=== PATIENT | male | born 1950 | race Caucasian/White ===

== ENCOUNTER 2018-01-15 07:22 | Day surgery (SDC) | payer OTHER ==
[2018-01-15] MEDS ORDERED: NS 1,000 ML IV ONE (07:26)
[2018-01-15] MEDS ORDERED: ASPIRIN EC 325 MG TAB PO ONE (07:26)
[2018-01-15] MEDS ORDERED: FAMOTIDINE 20 MG TAB PO ONE (07:26)
[2018-01-15] MEDS ORDERED: diphenhydrAMINE 25 MG CAP PO ONE (07:26)
[2018-01-15] MEDS ORDERED: DIAZEPAM 5 MG TAB PO ONE (07:26)
[2018-01-15] MEDS ORDERED: IOPAMIDOL (ISOVUE-370) 150 ML BTL IV ONE (07:33)
[2018-01-15] MEDS ORDERED: MIDAZOLAM 2 MG/2 ML VIAL ONE (07:33)
[2018-01-15] MEDS ORDERED: LIDOCAINE 1% 300 MG/30 ML SDV ONE (07:33)
[2018-01-15] MEDS ORDERED: fentaNYL 100 MCG/2 ML INJ ONE (07:33)
--- NOTE | 2018-01-15 07:36 | PDHPUP ---
History & Physical Update H&P update statement: This history and physical update is based on an assessment of the patient which was completed after admission or registration (within 24 hours), but prior to the surgery/procedure. H&P update: H&P reviewed & patient examined, no change in patient's condition since H&P completed
--- NOTE | 2018-01-15 07:36 | PDPROPOC ---
Sedation Plan of Care Sedation Plan of Care: mental status noted, patient educated of risks, benefits , alternatives, patient can tolerate sedation ASA Classification: ASA 2 Planned drugs: fentanyl, midazolam Mallampati Score: Class 2 Mallampati Reference Image: Patient passed 3-3-2 rule?: Yes
[2018-01-15 07:49] LABS: PLATELET COUNT 203 10^3/uL (150-400)
[2018-01-15 07:59] LABS: INR 1.05 (0.83-1.16); PROTIME(PATIENT) 13.9 SEC (12.0-15.0)
[2018-01-15] MEDS ORDERED: ONDANSETRON 4 MG/2 ML VIAL IVP PRN (08:33)
[2018-01-15] MEDS ORDERED: OXYCODONE/APAP 5/325 TAB PO PRN (08:33)
[2018-01-15] MEDS ORDERED: HYDROCODONE/APAP 5/325 TAB PO PRN (08:33)
[2018-01-15] MEDS ORDERED: ATROPINE SULFATE 1 MG/10 ML SYR IVP PRN (08:33)
[2018-01-15] MEDS ORDERED: NITROGLYCERIN 0.4 MG BTL SL PRN (08:33)
--- NOTE | 2018-01-15 09:21 | CPIP ---
DATE OF PROCEDURE: 01/15/2018 INDICATION FOR PROCEDURE: Critical bioprosthetic aortic stenosis. PROCEDURES: 1. Nonselective left groin sheathogram. A 7-Bolivian sheath left common femoral vein. 2. Right heart catheterization with [place]-Charles catheter. 3. Bilateral coronary angiography. 4. Abdominal aortogram. HISTORY: Briefly, this is a 67-year-old male with history of known bioprosthetic aortic valve, sever e stenosis. Patient has been having worsening function of the valve over the last 6 months, which estrada s been followed closely by Dr. Manav Sepulveda. Patient had consented for right and left heart brennen terization in anticipation for eventual vrijp-lm-vtrej TAVR. DESCRIPTION OF PROCEDURE: Informed consent. Patient brought to [facility], where the left groin was preppe d and draped in sterile fashion. Utilizing lidocaine, a short 6-Bolivian sheath left femoral artery ve rified angiographically. A 7-Bolivian sheath in left common femoral vein. Portland-Charles catheter was then advanced. Wedge pressure was mean of 17, A-wave 20, V-wave 20, PA pressure systolic 40, diastolic 2 6, mean of 36. RV pressure systolic 45, diastolic 8, end of 12. RA pressure mean of 11, A-wave of 1 2, V-wave 13. Cardiac output was measured to be 5.8 by Mora with a cardiac index of 2.7. AO sat 97% . PA sat 79%. Portland-Charles catheter was then removed. JL4 catheter was advanced to the left coronary artery. Images of left coronary artery revealed normal long left main. Left circumflex artery gave off a marginal 1 proximally. There was a much larger marginal 2 artery and then what appeared to be all of which were healthy and free of disease. The LAD was a long vessel which wrapped ar ound the apex. The LAD had mild plaque disease, but no critical stenosis. There was a moderate-size d diagonal artery coming off the midportion which was healthy and free of disease. After the images were obtained, the JR4 catheter was removed. A JR4 catheter was advanced to the right coronary arter y. Images of the right coronary artery revealed normal ostial RCA, normal mid RCA. Distal RPDA appe ared to be aneurysmal, but appeared to be healthy and free of disease. After the images were obtaine d, the JR4 catheter was removed. A pigtail catheter advanced to the ascending aorta. Abdominal aort ogram was obtained which showed widely patent common, external, internal iliac arteries with widely p atent CFAs bilaterally. The pigtail catheter was then removed over the 0.035 wire. Right groin was closed with manual pressure. Patient tolerated the procedure well with no complications. IMPRESSION: 1. Essentially normal coronary arteries bilaterally. 2. Mild pulmonary hypertension. 3. Normal cardiac output. 4. Widely patent aortoiliac femoral access. PLAN: The patient will have CTs the chest, abdomen and pelvis today. We will also have carotid ultr asound. Plan for jhali-mx-wgfno TAVR within the week. /[id number]/MODL
[2018-01-15] MEDS ORDERED: IOPAMIDOL (ISOVUE 370) 100 ML BTL IV ONE (10:32)
--- NOTE | 2018-01-15 22:28 | CPEKG ---
Test Reason : OPEN Blood Pressure : / mmHG Vent. Rate : 084 BPM Atrial Rate : 000 BPM P-R Int : 164 ms QRS Dur : 103 ms QT Int : 401 ms P-R-T Axes : 000 019 054 degrees QTc Int : 475 ms Atrial fibrillation Left ventricular hypertrophy Nonspecific ST and T wave abnormality Confirmed by Garry Trent ([id number]) on 01/15/2018 10:28:02 PM Referred By: Confirmed By:Garry Trent
== END 2018-01-15 13:06 | disposition home or self-care (01) ==
LOC: FCATH 07:22
PROVIDERS: ATTEND Internal Medicine Cardiovascular Disease
DX: T82.857A Stenosis of other cardiac prosthetic devices, implants and grafts, initial encounter (principal)
CPT/HCPCS: J1200; J1644; J2250; J3010; Q9967

== ENCOUNTER 2018-01-20 05:41 | Inpatient (IN) | payer OTHER ==
[2018-01-20] MEDS ORDERED: NS 1,000 ML IV ONE (06:11)
--- NOTE | 2018-01-20 06:45 | PDPROPOC ---
Sedation Plan of Care Sedation Plan of Care: mental status noted, patient educated of risks, benefits , alternatives, patient can tolerate sedation ASA Classification: ASA 2 Planned drugs: other Mallampati Score: Class 2 Mallampati Reference Image: Patient passed 3-3-2 rule?: Yes
[2018-01-20] MEDS ORDERED: LIDOCAINE 1% 300 MG/30 ML SDV ONE ×2 (06:59→07:57)
[2018-01-20] MEDS ORDERED: ceFAZolin 2 GM/DEXTROSE 100 ML IV ONE (07:00)
[2018-01-20] MEDS ORDERED: IOPAMIDOL (ISOVUE-370) 150 ML BTL IV ONE (07:00)
--- NOTE | 2018-01-20 07:01 | PDANEPAE ---
ANE History of Present Illness tavr ANE Past Medical History - Cardiovascular History Hx Hypertension: Yes Hx Arrhythmias: No Hx Chest Pain: No Hx Coronary Artery / Peripheral Vascular Disease: No Hx CHF / Valvular Disease: Yes Hx Palpitations: No - Pulmonary History Hx COPD: No Hx Asthma/Reactive Airway Disease: No Hx Recent Upper Respiratory Infection: No Hx Oxygen in Use at Home: No Hx Sleep Apnea: No - Neurologic History Hx Cerebrovascular Accident: No Hx Seizures: No Hx Dementia: No - Endocrine History Hx Diabetes: No Hypothyroid: No Hyperthyroid: No Obesity: mild - Renal History Hx Renal Disorders: No - Liver History Hx Hepatic Disorders: No ANE Review of Systems Review of Systems: - Exercise capacity Exercise capacity: >=4 METS ANE Patient History - Allergies Allergies/Adverse Reactions: No Known Allergies Allergy (Verified 01/08/18 09:48) - Home Medications Home medications: home medication list seen and reviewed Home Medications: Acetaminophen [Tylenol 325mg (*)] 325 mg PO DAILY 01/08/18 [Last Taken Unknown] Aspirin [Aspirin 81mg (*)] 81 mg PO HS 01/08/18 [Last Taken 01/15/18 06:00] Cephalexin [Keflex (*)] 500 mg PO DAILY 01/08/18 [Last Taken 01/15/18 06:00] Lisinopril [Zestril 40 mg (*)] 40 mg PO DAILY 01/08/18 [Last Taken 01/15/18 06: 00] amLODIPine BESYLATE [Norvasc 5 mg (*)] 5 mg PO BID 01/08/18 [Last Taken 06:00] - Anes Hx Anes Hx: no prior problems - Smoking Hx Smoking Status: Never smoked ANE Labs/Vital Signs - Vital Signs Height: 185.4 cm Weight: 90.2 kg ANE Physical Exam - Airway Mallampati Score: Class 2 Mouth exam: normal dental/mouth exam - Pulmonary Pulmonary: no respiratory distress - Cardiovascular Cardiovascular: regular rate and rhythym - ASA Status ASA Status: III ANE Anesthesia Plan Anesthesia Plan: MAC Lines/Monitors: central line
[2018-01-20] MEDS ORDERED: MIDAZOLAM 2 MG/2 ML VIAL ONE (07:26)
[2018-01-20] MEDS ORDERED: PROPOFOL/EMULSION 500 MG/50 ML BOTTLE IV ONE (07:26)
[2018-01-20] MEDS ORDERED: fentaNYL 100 MCG/2 ML INJ ONE (07:26)
[2018-01-20] MEDS ORDERED: DEXMEDETOMIDINE HCL 400 MCG in NS 100 ML IV SCH (07:30)
[2018-01-20] MEDS ORDERED: HEPARIN 10,000 UNIT/10 ML MDV (1,000 UNIT/ML) ONE ×2 (08:25)
[2018-01-20] MEDS ORDERED: PROTAMINE SULFATE 50 MG/5 ML VIAL IVP ONE (08:38)
[2018-01-20] MEDS ORDERED: ATROPINE SULFATE 1 MG/10 ML SYR IVP PRN (08:48)
[2018-01-20] MEDS ORDERED: ONDANSETRON 4 MG/2 ML VIAL IVP PRN ×2 (08:48→09:01)
[2018-01-20] MEDS ORDERED: HYDROmorphONE/DILAUDID 1 MG/ML INJ IVP PRN (08:48)
[2018-01-20] MEDS ORDERED: hydrALAZINE 20 MG/ML VIAL IVP PRN (08:48)
[2018-01-20] MEDS ORDERED: IBUPROFEN 800 MG TAB PO PRN (08:48)
[2018-01-20] MEDS ORDERED: ONDANSETRON DISINTEGRATING 4 MG TAB PO PRN (08:48)
[2018-01-20] MEDS ORDERED: CEPHALEXIN 500 MG CAP PO SCH (09:00)
[2018-01-20] MEDS ORDERED: NALOXONE HCL 0.4 MG/ML INJ IVP PRN (09:01)
[2018-01-20] MEDS ORDERED: fentaNYL 100 MCG/2 ML INJ IVP PRN (09:01)
[2018-01-20] MEDS ORDERED: ALBUTEROL 3 ML DEYVIAL IH PRN (09:01)
--- NOTE | 2018-01-20 09:01 | POSTANESTH ---
Post Anesthetic Evaluation Cardiovascular Status: Normal, Stable Respiratory Status: Normal, Stable Level of Consciousness/Mental Status: Can Participate in Eval Pain Control: Adequate, Prn Tx Ordered Nausea/Vomiting Control: Adequate, Prn Tx Ordered Complications Possibly Related to Anesthesia: None Noted
--- NOTE | 2018-01-20 09:17 | GOP ---
DATE OF OPERATION: 01/20/2018 SURGEON: Joao Toscano MD PREOPERATIVE DIAGNOSIS: Aortic prosthetic valve stenosis. POSTOPERATIVE DIAGNOSIS: Aortic prosthetic valve stenosis. PROCEDURE PERFORMED: Transcatheter aortic valve replacement using a 26 mm Evolut R device. FINDINGS: INDICATIONS: The patient is a 67-year-old gentleman who had previous placement of a bioprosthetic ao rtic valve. He has now developed prosthetic stenosis. He is highly symptomatic, and was recommended to undergo transcatheter valve replacement for his failed prosthetic valve. 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 After the administration of IV antibiotics and monitor anesthesia and sterile prep and drap e both groins were accessed with the needle. On the right, an 8-Ethiopian sheath was placed, and this w as then upsized to the 14-Ethiopian Cook sheath. On the left side, an 8-Ethiopian sheath was placed and a pigtail catheter was passed through this. With the patient now fully heparinized we crossed the valv e and placed a double-curved Lunderquist into the left ventricle. The sheath was removed, and the 26 mm Evolut R device was then brought up into the field, and with Dr. Gonzales in position 1 and myself in position 2 the device was placed across the prosthetic valve, positioned, the patient ws paced, a nd the valve was deployed. Post deployment echocardiography revealed no perivalvular leak. We were pleased with this results, and therefore, the device was then removed. The right side was closed wit h 2 Perclose devices, which had been placed previously. The left side was also closed with a Perclos e device. The patient tolerated the procedure well, was returned to the recovery area in stable cond ition. PRODUCER ASSISTANT: Jasbir Gonzales MD. /[id number]/MODL
--- NOTE | 2018-01-20 10:48 | CPIP ---
DATE OF PROCEDURE: 01/20/2018 INDICATION FOR PROCEDURE: Critical bioprosthetic aortic stenosis. CO-SURGEONS: Dr. Joao Toscano, Dr. Ferny Quijano, Dr. Jasbir Gonzales PROCEDURE: 1. Nonselective left groin sheathogram. 2. Nonselective right groin sheathogram. 3. Double Perclose placement of the right common femoral artery. 4. Left heart catheterization. 5. Placement of Medtronic CoreValve Evolute R 26 mm valve via the transfemoral route. HISTORY: Briefly, a 67-year-old male with history of critical bioprosthetic aortic stenosis. Patien t was deemed to be a suitable candidate for transfemoral TAVR. DESCRIPTION OF PROCEDURE: After informed consent, the patient was brought to [facility], where the bilatera l groins were prepped in sterile fashion. Patient underwent MAC anesthesia. Temporary pacemaker vicente cement via the right IJ verified fluoroscopically, as well as electrically. 2 g Ancef administered p rior to the case. 6-Lithuanian sheath placed in the left common artery verified angiographically, upsized to an 8=Lithuanian sh [facility]. 6-Lithuanian sheath placed in the right femoral artery, upsized to an 8-Lithuanian sheath after double Perclose placements. Patient was administered a total of 14,000 heparin IV. The valve was crossed. The AL1 catheter with a straight stiff Glidewire was switched out for a pigtail catheter, switched out for a Lunderquist wire. The patient then had successful placement of a Medtronic CoreValve Evolu te R 26 mm valve by the transfemoral route. This was deployed successfully. Post-deployment, there was on echocardiographic evidence, no evidence of perivalvular leak with excellent deployment and laya osition and expansion of the valve. At this time, after the valve was deployed, the sheath was then pulled back and the right groin was c losed with the double Perclose. The left groin was closed with 8-Lithuanian Angio-Seal. The patient lizzy erated the procedure well with no complications. IMPRESSION: Successful placement of Medtronic CoreValve Evolute R 26 mg valve by the transfemoral ro cachil dehe. PLAN: The patient will be admitted to PCU. Further orders following clinical course. /[id number]/MODL
--- NOTE | 2018-01-20 14:25 | PDMN ---
Medical Necessity Medical necessity: MCG: S1320 aortic valve replacement , transcatheter 3 days: MICHAEL INPT only OP: TAVR
[2018-01-20] MEDS: amLODIPine BESYLATE 5 MG TAB PO SCH ×2 (14:39→20:58)
[2018-01-20] MEDS: ACETAMINOPHEN 325 MG TAB PO SCH ×4 (14:39→21:55)
[2018-01-20] MEDS: LISINOPRIL 40 MG TAB PO SCH (14:39)
[2018-01-20] MEDS: CEPHALEXIN 500 MG CAP PO SCH (20:57)
[2018-01-20] MEDS: oxyCODONE IR 5 MG TAB PO PRN (23:37)
[2018-01-21 05:05] LABS: PLATELET COUNT 185 10^3/uL (150-400)
[2018-01-21 05:12] LABS: INR 1.12 (0.83-1.16); PROTIME(PATIENT) 14.6 SEC (12.0-15.0)
--- NOTE | 2018-01-21 06:53 | PDCARPN ---
Cardiology Progress Note Chief Complaint: STEINBERG Assessment/Plan: Assessment: STEINBERG s/p TAVR for Carey AF but REYNA ligated Plan: 01/21/18 06:51 doing well pt does not want AC tx willing to do full dose ASA OOB IS check echo Subjective: doing well Reviewed/Discussed With: multidisciplinary team Time Spent with Patient: greater than 25 minutes Time Spent with Patient: Greater than 25 minutes spent on this patients care, greater than 50% of time spent counseling, educating, and coordinating care regarding the above mentioned plan. Objective: Vital Signs (8 Hrs) Temp Pulse Resp BP Pulse Ox 01/21/18 05:08 37.2 C 90 16 134/96 H 94 01/20/18 23:38 37.3 C 74 16 133/86 H 93 Intake/Output (24 Hrs) 01/20/18 01/21/18 01/22/18 05:59 05:59 05:59 Intake Total 2300 Output Total 100 Balance 2200 Intake: Oral (ml) 1500 IV Intake (ml) 800 Output: Urine (ml) 100 Urinal 100 Other: Weight 90.2 kg Number of Voids Toilet 2 Result Diagrams: 01/21/18 04:20 01/21/18 04:20 - Physical Exam Constitutional: healthy appearing Eyes: PERRL Ears, Nose, Mouth, Throat: moist mucous membranes Cardiovascular: regular rate and rhythm, systolic murmur Peripheral Pulses: 1+: femoral (R), femoral (L) Respiratory: clear to auscultate bilat Gastrointestinal: normoactive bowel sounds Genitourinary: no suprapubic tenderness Skin: no rashes Musculoskeletal: no muscular tenderness Neurologic: AAOx3 Psychiatric: cooperative ICD10 Worksheet Patient Problems: Problems Problem Status Onset Aortic stenosis, severe Acute - ICD10 Problem Qualifiers (1) Aortic stenosis, severe
[2018-01-21] MEDS: LISINOPRIL 40 MG TAB PO SCH (07:01)
[2018-01-21] MEDS: ACETAMINOPHEN 325 MG TAB PO SCH ×4 (07:01→22:50)
[2018-01-21] MEDS: amLODIPine BESYLATE 5 MG TAB PO SCH ×2 (07:01→20:46)
[2018-01-21] MEDS: ASPIRIN 325 MG TAB PO SCH (08:58)
--- NOTE | 2018-01-21 10:51 | ECHO ---
[email or web address] [address] [address] Main: [phone] Fax: Transthoracic Echocardiogram Name: ROX CIFUENTES MR#: [id number] Study Date: 01/21/2018 Study Time: 07:49 AM Date of : 1950 Age: 67 year(s) Height: 182.9 cm (72 in.) Weight: 89.81 kg (198 lb.) BSA: 2.12 m2 Gender: Male Examination: Echo Indication: Post TAVR Image Quality: Adequate Contrast: Requested by: Jasbir Gonzales BP: 136 mmHg/90 mmHg Heart Rate: Rhythm: Indication: Post TAVR Procedure Staff Veterinary Medicine Teacher: Adri Taylor RDCS Reading Physician: Manav Sepulveda MD Requesting Provider: Conclusions: No pericardial effusion. Concentric left ventricular hypertrophy transcutaneous aortic valve replacement. No aortic regurgitation. Mild tricuspid regurgitation. Measurements: Chambers Valvular Assessment AV/MV Valvular Assessment TV/PV Normal Normal Normal Name Value Range Name Value Range Name Value Range Ao Yaquelin (2D): 3.5 cm (1.4 cm-2.6 AV Vmax: 2.50 m/s (1 m/s-1.7 TR Vmax: 2.71 mm/s ( - ) cm) m/s) TR PGmax: 29 mmHg ( - ) IVSd (2D): 1.5 cm (0.6 cm-1.1 AV maxP mmHg ( - ) syst. PAP: 34 mmHg ( - ) cm) AV meanP mmHg ( - ) PV Vmax: 1.03 m/s (0.6 m/s-0.9 LVDd (2D): 5.0 cm (4.2 cm-5.9 ELBERT (VTI): 1.3 cm ( - ) m/s) cm) MV E Vmax: 0.94 m/s ( - ) PV PGmax: 4 mmHg ( - ) LVDs (2D): 3.6 cm (2.1 cm-4 MV PHT: 0.077 s ( - ) cm) MVA (PHT): 2.9 s ( - ) LVPWd (2D): 1.5 cm (0.6 cm-1 cm) LVOTd 2.2 cm 2.2 cm mm LVEF (MOD4): 53 % (>=55 %) RVDd(2D): 3.4 cm (1.9 cm-3.8 cmmm) Continued Measurements: Chambers Valvular Assessment AV/MV Valvular Assessment TV/PV Name Value Name Value Name Value LADs: 4.5 cm MV DecTime: 246 m/s CVP (est.): 5 mmHg LADs Lon.0 cm MV E' Septal: 0.10 m/s LA Area: 34.2 cm2 MV E/E' Septal: 9.60 LA Volume: 129 ml MV E/E' Lateral: 7.20 Patient: ROX CIFUENTES Study Date: 01/21/2018 Page 1 of 2 07:49 AM LA Volume Index: 60.8 ml/m2 RA Area: 24.3 cm2 Additional Vessels Name Value Ao Ascendin.9 cm Inferior Vena Cava: 2.1 cm Findings: Left Ventricle: Normal size left ventricle. Moderate concentric LV hypertrophy. Normal global systolic LV function. EF is 53 %. No regional wall motion abnormality. Unable to assess diastolic dysfunction. Possible inferior hypokinesis/dyskinesis vs bundle branch. Right Ventricle: Normal size right ventricle. Normal RV function. Left Atrium: The left atrium is severely dilated. Right Atrium: The right atrium is normal in size. Mitral Valve: The mitral valve is normal in appearance and function. Mild mitral valve regurgitation is present. No mitral stenosis is present. Aortic Valve: The aortic valve is a bioprosthesis. Normal functioning aortic valve prosthesis. The prosthetic aortic valve is normal. The orifice motion of the prosthetic aortic valve is normal. No prosthesis regurgitation. TAVR. Tricuspid Valve: The tricuspid valve is normal in appearance and function. Mild tricuspid regurgitation is present. The pulmonary artery pressure is normal. Right ventricular systolic pressure measures 34mmHg. Pulmonic Valve: The pulmonic valve is normal in appearance and function. There is no pulmonic regurgitation seen. Aorta: The aorta is normal. Normal size aortic root measuring 3.5 cm. Normal size ascending aorta measuring 2.9 cm. IVC: The IVC is normal sized. Pericardium: No pericardial effusion. No pleural effusion. There appears to be an anechoic structure on the liver. (No Signature Object) Patient: ROX CIFUENTES Study Date: 01/21/2018 Page 2 of 2 07:49 AM D:_[id number]
--- NOTE | 2018-01-21 15:39 | ASMTCMCOM ---
CM Note CM Note Notes: Pt's chart reviewed for d/c planning. Pt treated for critical bioprosthetic aortic stenosis and transfemoral artery. Pt is and lives at home independently. 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 No CM needs ar anticipated at this time; CM will continue to follow. D/C Plan: Anticipate independent. Date Signed: 01/21/2018 03:39 PM Electronically Signed By:Leslie العراقي
[2018-01-21] MEDS ORDERED: POLYETHYLENE GLYCOL 3350 17 GM PKT PO PRN (19:14)
[2018-01-21] MEDS: CEPHALEXIN 500 MG CAP PO SCH (20:47)
[2018-01-21] MEDS: oxyCODONE IR 5 MG TAB PO PRN (22:50)
[2018-01-22 04:24] LABS: PLATELET COUNT 161 10^3/uL (150-400)
[2018-01-22 04:31] LABS: INR 1.17 (0.83-1.16); PROTIME(PATIENT) 15.1 SEC (12.0-15.0)
[2018-01-22] MEDS: ACETAMINOPHEN 325 MG TAB PO SCH (06:35)
--- NOTE | 2018-01-22 06:58 | PDCARPN ---
Cardiology Progress Note Chief Complaint: degenerated bAVR Assessment/Plan: Assessment: STEINBERG s/p TAVR for Carey AF but REYNA ligated Plan: 01/21/18 06:51 doing well pt does not want AC tx willing to do full dose ASA OOB IS check echo 01/22/18 06:57 doing well d/c home today pt does not want Ac tx--will keep on full dose ASA Subjective: doing well Reviewed/Discussed With: multidisciplinary team Time Spent with Patient: greater than 25 minutes Time Spent with Patient: Greater than 25 minutes spent on this patients care, greater than 50% of time spent counseling, educating, and coordinating care regarding the above mentioned plan. Objective: Vital Signs (8 Hrs) Temp Pulse Resp BP Pulse Ox 01/22/18 02:38 37.1 C 76 16 123/80 H 93 01/21/18 23:34 37.8 C 83 16 134/90 H 93 Intake/Output (24 Hrs) 01/21/18 01/22/18 01/23/18 05:59 05:59 05:59 Intake Total 2300 2160 Output Total 100 550 Balance 2200 1610 Intake: Oral (ml) 1500 2160 IV Intake (ml) 800 Output: Urine (ml) 100 550 Toilet 200 Urinal 100 350 Other: Weight 90.2 kg Number of Voids Toilet 2 2 Urinal 1 Number of Stools Toilet 1 Result Diagrams: 01/22/18 04:01 01/22/18 04:01 - Physical Exam Constitutional: healthy appearing Eyes: PERRL Ears, Nose, Mouth, Throat: moist mucous membranes Cardiovascular: irregularly irregular Peripheral Pulses: 1+: femoral (R), femoral (L) Respiratory: clear to auscultate bilat Gastrointestinal: normoactive bowel sounds Genitourinary: no suprapubic tenderness Skin: no rashes Musculoskeletal: no muscular tenderness Neurologic: AAOx3 Psychiatric: cooperative ICD10 Worksheet Patient Problems: Problems Problem Status Onset Aortic stenosis, severe Acute - ICD10 Problem Qualifiers (1) Aortic stenosis, severe
[2018-01-22] MEDS: LISINOPRIL 40 MG TAB PO SCH (07:29)
[2018-01-22] MEDS: amLODIPine BESYLATE 5 MG TAB PO SCH (07:29)
[2018-01-22] MEDS: ASPIRIN 325 MG TAB PO SCH (07:29)
--- NOTE | 2018-01-22 07:32 | GDS ---
DISCHARGE DIAGNOSIS: Critical stenosis of degenerated bioprosthetic aortic valve. HISTORY: Briefly, this is a 67-year-old male who has known history of bioprosthetic aortic valve rep lacement. The patient's valve has significantly degenerated over the last year, which has been close ly followed as an outpatient. The patient started having increasing palpitations and dyspnea, which were noted as an outpatient. Given these findings, patient consented for igsxq-ve-ywqpa TAVR. The p jovon underwent successful eonaj-ul-jdrch TAVR with a Medtronic CoreValve Evolut R. Post-procedure, patient has done very well. Post-procedure echocardiogram shows a normally functioning valve with no perivalvular leak. The patients's ejection fraction is normal. Laboratory values are within normal limits. He will be discharged home this morning with his home medications. I have spoken at length with the patient about going on anticoagulation therapy for 2 reasons. One, that he now has a valve- in-valve prosthesis as well as having a chronic history of atrial fibrillation. Of note, his left at rial appendage was ligated at the time of his first surgery. The patient is very hesitant to do anyt shayy but full-dose aspirin. Thus, we will start that today. We will discuss with the patient as an outpatient, potentially starting anticoagulation therapy based on the aforementioned reasons. Baron ruelas to follow up in the office in 1 week's time. /[id number]/MODL
[2018-01-22 07:43] VITALS: BP 118/88
--- NOTE | 2018-01-22 12:39 | ASDISCHSUM ---
Discharge Information Plan Status:Home with No Needs Medically Cleared to Leave:01/21/2018 Discharge Date:01/22/2018 10:55 AM CM D/C Disposition:Home, Routine, Self-Care ADT D/C Disposition:Home, Routine, Self-Care Projected Discharge Date:01/22/2018 10:55 AM Transportation at D/C: Discharge Delay Reason: Follow-Up Date:01/22/2018 10:55 AM Discharge Slot: Final Diagnosis: Placement Information Patient Contact Information Contact Name:SHA Relationship: Address:[address] [place] [address] City:[place] Phone: State/Zip Code:[place] [address] Email: Financial Information Financial Class:HMO and PPO Plans Primary Plan Desc:[facility] Primary Plan Number:[id number] Secondary Plan Desc: Secondary Plan Number: Assessment Information LACE LACE Length of stay for Answers: 2 days current admission Acuity / Level of Answers: Yes Care: Did the patient have an inpatient admission? Comorbidities - select Answers: Congestive heart failure all that apply Other Notes: HTN # of Emergency department Answers: 0 visits in the last 6 months Score: 8 Date Signed: 01/22/2018 12:36 PM Electronically Signed By:Maria L Swain RN [facility] CM Progress Note CM Note CM Note Notes: Pt's chart reviewed for d/c planning. Pt treated for critical bioprosthetic aortic stenosis and transfemoral artery. Pt is and lives at home independently. 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 D/C Plan: Anticipate independent. Date Signed: 01/21/2018 03:39 PM Electronically Signed By:Leslie العراقي Case Management Discharge Plan Note Case Management Discharge Discharge Order Complete? Answers: Yes Patient to Obtain Answers: via Family Medications Discharge Comments Notes: Case Management Note Pt discharged independent with follow up as directed. There were no discharge case management needs identified. Date Signed: 01/22/2018 12:38 PM Electronically Signed By:Maria L Swain RN Intervention Information
== END 2018-01-22 10:55 | disposition home or self-care (01) | DRG 267 ==
LOC: FCATH 05:41 → F2W 08:51
PROVIDERS: ADMIT Internal Medicine Cardiovascular Disease; ATTEND Internal Medicine Cardiovascular Disease
PROC: 02RF38Z Replacement of Aortic Valve with Zooplastic Tissue, Percutaneous Approach (ICD-10-PCS; principal; 2018-01-20)
DX: I35.0 Nonrheumatic aortic (valve) stenosis (principal); Z00.6 Encounter for examination for normal comparison and control in clinical research program; I10 Essential (primary) hypertension
CPT/HCPCS: C1760; C1769; C1894; J0690; J1644; J2250; J2704; J2720; J3010; Q9967